=== PATIENT | male | born 1950 | race Caucasian/White ===

== ENCOUNTER 2021-06-01 07:03 | Emergency (ER) | payer MEDICARE ==
[~2021-06-01] VITALS: Ht 182.9 cm; Wt 93.0 kg
[2021-06-01] MEDS ORDERED: ATOR40TA PO (07:28)
[2021-06-01] MEDS ORDERED: LISI10 PO (07:28)
[2021-06-01] MEDS ORDERED: ASPI81CH PO (07:28)
[2021-06-01 07:45] LABS: BASOPHILS PERCENT AUTO 1 % (0-2); EOSINOPHILS ABSOLUTE AUTO 0.25 K/mm3 (0.00-0.68); EOSINOPHILS PERCENT AUTO 3 % (0-6); Hemoglobin 14.6 g/dL (13.5-17.5); IMMATURE GRAN ABSOLUTE AUTO 0.02 K/mm3 (0.00-0.10); IMMATURE GRAN PERCENT AUTO 0 % (0-1); LYMPHOCYTES PERCENT AUTO 29 % (21-46); MONOCYTES ABSOLUTE AUTO 0.68 K/mm3 (0.16-1.47); MONOCYTES PERCENT AUTO 9 % (4-13); Mean Corpuscular HGB 30.4 pg (26.0-34.0); Mean Corpuscular HGB Conc 32.4 g/dL (31.5-36.5); Mean Corpuscular Volume 94 fL (80-100); Mean Platelet Volume 9.3 fL (9.1-12.4); NEUTROPHILS ABSOLUTE AUTO 4.16 K/mm3 (1.96-9.15); NEUTROPHILS PERCENT AUTO 57 % (41-73); Platelet Count 355 K/mm3 (150-400); RDW Coefficient Variation 13.4 % (11.7-14.2); RDW Standard Deviation 46.5 fL (35.1-46.3); Red Blood Cell Count 4.81 M/mm3 (4.30-5.90); White Blood Cell Count 7.31 K/mm3 (4.00-11.30)
[2021-06-01 08:06] LABS: Alanine Aminotransfer (ALT/SGP 22 U/L (12-78); Albumin, Blood 3.4 g/dL (3.4-5.0); Albumin/Globulin Ratio 0.8 (0.8-1.8); Alk Phos 124 U/L (50-136); Anion Gap 4 mmol/L (6-16); Aspartate Aminotrans (AST/SGOT 15 U/L (12-37); Bilirubin, Total 0.4 mg/dL (0.1-1.0); Blood Urea Nitrogen 24 mg/dL (8-24); Bun/Creatinine Ratio 19.7 (12.0-20.0); CO2, Blood 29 mmol/L (21-32); Chloride, Blood 105 mmol/L (98-108); Creatinine, Blood 1.22 mg/dL (0.60-1.20); Globulin, Blood 4.2 g/dL (2.2-4.0); Glomerular Filtration Rate 59 (60-); Glucose, Blood 151 mg/dL (70-99); Magnesium, Blood 2.3 mg/dL (1.6-2.4); Potassium, Blood 4.2 mmol/L (3.5-5.5); Sodium, Blood 138 mmol/L (136-145); Total Protein, Blood 7.6 g/dL (6.4-8.2); Troponin I <0.015 ng/mL (0.000-0.040)
--- NOTE | 2021-06-01 08:43 | NUR ---
pt alert and appears in not resp distress. svn given per order. HR-61 RR-18. BS- END EXP WHEEZES T/O. BS POST TX - CLEARING WELL WITH GOOD AERATION. ROOM AIR SATS - 96%. BP 128/67. MARIFER WELL. FAMILY MEMBER AT BEDSIDE.
[2021-06-01 08:49] LABS: Source, Urine Clean Catch
[2021-06-01 08:53] LABS: Appearance, Urine Clear (Clear); Bilirubin, Urine Neg (Neg); Blood, Urine Neg (Neg); Color, Urine Yellow (P-Yellow); Glucose Qualitative, Urine Neg (Neg); Ketones, Urine Neg (Neg); Leukocyte Esterase, Urine Neg (Neg); Nitrite, Urine Neg (Neg); Protein, Urine Neg (Neg); Urobilinogen, Urine NORM (Normal)
== END 2021-06-01 09:37 | disposition home or self-care (01) ==
LOC: ER 07:03
PROVIDERS: Student in an Organized Health Care Education/Training Program
DX: I69.354 Hemiplegia and hemiparesis following cerebral infarction affecting left non-dominant side (principal); J44.9 Chronic obstructive pulmonary disease, unspecified; Z91.048 Other nonmedicinal substance allergy status; Z79.82 Long term (current) use of aspirin; Z79.899 Other long term (current) drug therapy; Z87.891 Personal history of nicotine dependence
CPT/HCPCS: 36415; 71046; 80053; 81003; 82947; 83735; 84484; 85025; 93005; 93010; 99284-25

== ENCOUNTER 2024-08-13 19:54 | Emergency (ER) | payer MEDICARE ==
[~2024-08-13] VITALS: Ht 182.9 cm; Wt 99.8 kg
[~2024-08-13 19:54] MED LIST: ASPI81CH PO; ATOR40TA PO; LISI10 PO
[2024-08-13] MEDS ORDERED: Albuterol 2.5 MG/3 ML VIAL INH SCH ×2 (20:10→21:10)
[2024-08-13 20:18] LABS: BASOPHILS ABSOLUTE AUTO 0.12 K/mm3 (0.00-0.23); BASOPHILS PERCENT AUTO 1 % (0-2); EOSINOPHILS ABSOLUTE AUTO 0.43 K/mm3 (0.00-0.68); EOSINOPHILS PERCENT AUTO 3 % (0-6); Hematocrit 43.5 % (37.0-53.0); Hemoglobin 14.3 g/dL (13.5-17.5); IMMATURE GRAN ABSOLUTE AUTO 0.03 K/mm3 (0.00-0.10); IMMATURE GRAN PERCENT AUTO 0 % (0-1); LYMPHOCYTES ABSOLUTE AUTO 0.86 K/mm3 (0.84-5.20); LYMPHOCYTES PERCENT AUTO 7 % (21-46); MONOCYTES ABSOLUTE AUTO 1.88 K/mm3 (0.16-1.47); MONOCYTES PERCENT AUTO 15 % (4-13); Mean Corpuscular HGB 28.9 pg (26.0-34.0); Mean Corpuscular HGB Conc 32.9 g/dL (31.5-36.5); Mean Corpuscular Volume 88 fL (80-100); NEUTROPHILS ABSOLUTE AUTO 9.61 K/mm3 (1.96-9.15); NEUTROPHILS PERCENT AUTO 74 % (41-73); Platelet Count 356 K/mm3 (150-400); RDW Coefficient Variation 15.5 % (11.7-14.2); Red Blood Cell Count 4.95 M/mm3 (4.30-5.90); White Blood Cell Count 12.93 K/mm3 (4.00-11.30)
[2024-08-13 20:31] LABS: Albumin, Blood 3.6 g/dL (3.4-5.0); Bilirubin, Total 0.5 mg/dL (0.1-1.0); Bun/Creatinine Ratio 11.5 (12.0-20.0); Calcium, Blood 9.4 mg/dL (8.5-10.1); Creatinine, Blood 1.22 mg/dL (0.60-1.20); Globulin, Blood 3.7 g/dL (2.2-4.0); Total Protein, Blood 7.3 g/dL (6.4-8.2)
[2024-08-13 21:03] LABS: Influenza A, PCR NEGATIVE (NEGATIVE); Influenza B, PCR NEGATIVE (NEGATIVE); Resp Syncytial Virus, PCR NEGATIVE (NEGATIVE); SARS-Cov-2 (COVID-19) PCR, MMC NEGATIVE (NEGATIVE)
[2024-08-13] MEDS ORDERED: MethylPREDNISolone Sod Succ 125 MG Vial IV ONE (21:10)
[2024-08-13 21:22] LABS: pH Blood Venous 7.46 (7.34-7.37)
[2024-08-13 21:23] LABS: Base Excess Venous 3.7 mmol/L; Bicarbonate Venous 27.4 mmol/L (24.0-30.0)
[2024-08-14] MEDS ORDERED: Zithromax250 MG PO (00:40)
[2024-08-14] MEDS ORDERED: Prednisone20 MG PO (00:40)
[2024-08-14] MEDS ORDERED: ALBU2.5V5 INH (00:40)
[2024-08-14] MEDS ORDERED: Azithromycin 250 MG Tab PO ONE (00:45)
[2024-08-14 01:00] VITALS: BP 103/61
== END 2024-08-14 01:05 | disposition home or self-care (01) ==
LOC: ER 19:54
PROVIDERS: Emergency Medicine
DX: J44.1 Chronic obstructive pulmonary disease with (acute) exacerbation (principal); Z87.891 Personal history of nicotine dependence; Z79.82 Long term (current) use of aspirin; Z79.899 Other long term (current) drug therapy; Z91.041 Radiographic dye allergy status
CPT/HCPCS: 0241U; 36415; 71045; 71250; 80053; 82803; 83605; 84145; 84484; 85025; 87040; 93005; 93010; 94640; 94644; 94645; 94664; 94762; 96374; 99285-25; A9270; J2919